=== PATIENT | male | born 1960 | race Caucasian/White ===

== ENCOUNTER 2019-10-10 08:56 | Day surgery (SDC) | payer SELFPAY ==
[~2019-10-10] VITALS: Ht 177.8 cm; Wt 81.4 kg
[~2019-10-10 08:56] MED LIST: GLUC500 PO; MULVITMIND PO; TESTOSTERONE PO
--- NOTE | 2019-10-10 09:20 | NUR ---
History, Chart, Medications and Allergies reviewed before start of procedure. Patient confirms NPO status and agrees with scheduled surgery. Lungs clear T/O to Auscultation. Pre-Op teaching done. Pt verbalizes understanding. Patient States Post-Procedure ride home has been arranged. Patient states colon prep results clear.
[2019-10-10] MEDS ORDERED: MSM-GLUCOSAMIN1 EACH PO (09:28)
[2019-10-10] MEDS ORDERED: GREEN TEA EXTR150 MG PO (09:29)
[2019-10-10] MEDS ORDERED: NIAC500ER PO (09:30)
[2019-10-10] MEDS ORDERED: Hair, Skin & N1 EACH PO (09:30)
[2019-10-10] MEDS ORDERED: ASCO500 PO (09:30)
[2019-10-10] MEDS ORDERED: Cholest Off450 MG PO (09:31)
--- NOTE | 2019-10-10 09:45 | NUR ---
10/10/19 0945 Tequila Ruiz History, Chart, Medications and Allergies reviewed before start of procedure. Patient confirms NPO status and agrees with scheduled surgery. PATIENT DETERMINED TO BE ASA APPROPRIATE FOR PROPOFOL SEDATION PRIOR TO START OF PROCEDURE BY DR. WHITLOCK. 3-LEAD EKG REVIEWED WITH PHYSICIAN PRIOR TO START OF PROCEDURE. MONITOR INTACT WITH CONTINUOUS PULSE OXIMETRY AND INTERMITTENT BP.
== END 2019-10-10 10:50 | disposition home or self-care (01) ==
LOC: ORSCMMR 08:56 → ORD 10:00 → ORSCMMR 10:50
PROVIDERS: Internal Medicine Gastroenterology
PROC: 0DBN8ZX Excision of Sigmoid Colon, Via Natural or Artificial Opening Endoscopic, Diagnostic (ICD-10-PCS; principal; 2019-10-10 10:00)
PROC: 0DBL8ZX Excision of Transverse Colon, Via Natural or Artificial Opening Endoscopic, Diagnostic (ICD-10-PCS; principal; 2019-10-10 10:00)
PROC: 0DBM8ZX Excision of Descending Colon, Via Natural or Artificial Opening Endoscopic, Diagnostic (ICD-10-PCS; principal; 2019-10-10 10:00)
DX: Z12.11 Encounter for screening for malignant neoplasm of colon (principal); Z86.010 Personal history of colon polyps; D12.5 Benign neoplasm of sigmoid colon; D12.4 Benign neoplasm of descending colon; D12.3 Benign neoplasm of transverse colon; B19.20 Unspecified viral hepatitis C without hepatic coma; K57.30 Diverticulosis of large intestine without perforation or abscess without bleeding
CPT/HCPCS: 88305; J2704; J7120

== ENCOUNTER 2022-07-17 15:09 | Inpatient (IN) | payer SELFPAY ==
[~2022-07-17] VITALS: Ht 165.1 cm; Wt 78.7 kg
[~2022-07-17 15:09] MED LIST changes: +ASCO500 PO; +Cholest Off450 MG PO; +GREEN TEA EXTR150 MG PO; +Hair, Skin & N1 EACH PO; +MSM-GLUCOSAMIN1 EACH PO; +NIAC500ER PO
[2022-07-17 15:58] LABS: BASOPHILS ABSOLUTE AUTO 0.04 K/mm3 (0.00-0.23); BASOPHILS PERCENT AUTO 0 % (0-2); EOSINOPHILS ABSOLUTE AUTO 0.14 K/mm3 (0.00-0.68); EOSINOPHILS PERCENT AUTO 1 % (0-6); Hematocrit 38.5 % (37.0-53.0); Hemoglobin 13.4 g/dL (13.5-17.5); IMMATURE GRAN ABSOLUTE AUTO 0.05 K/mm3 (0.00-0.10); IMMATURE GRAN PERCENT AUTO 0 % (0-1); LYMPHOCYTES ABSOLUTE AUTO 1.29 K/mm3 (0.84-5.20); LYMPHOCYTES PERCENT AUTO 10 % (21-46); MONOCYTES ABSOLUTE AUTO 1.23 K/mm3 (0.16-1.47); MONOCYTES PERCENT AUTO 9 % (4-13); Mean Corpuscular HGB 30.3 pg (26.0-34.0); Mean Corpuscular HGB Conc 34.8 g/dL (31.5-36.5); Mean Corpuscular Volume 87 fL (80-100); Mean Platelet Volume 9.2 fL (9.1-12.4); NEUTROPHILS ABSOLUTE AUTO 10.59 K/mm3 (1.96-9.15); NEUTROPHILS PERCENT AUTO 79 % (41-73); Platelet Count 413 K/mm3 (150-400); RDW Coefficient Variation 12.1 % (11.7-14.2); RDW Standard Deviation 39.2 fL (35.1-46.3); Red Blood Cell Count 4.42 M/mm3 (4.30-5.90); White Blood Cell Count 13.34 K/mm3 (4.00-11.30)
[2022-07-17 16:16] LABS: Albumin, Blood 2.9 g/dL (3.4-5.0); Albumin/Globulin Ratio 0.7 (0.8-1.8); Bilirubin, Total 0.4 mg/dL (0.1-1.0); Bun/Creatinine Ratio 22.4 (12.0-20.0); Creatinine, Blood 1.07 mg/dL (0.60-1.20); Globulin, Blood 4.1 g/dL (2.2-4.0); Potassium, Blood 4.1 mmol/L (3.5-5.5)
[2022-07-17 16:18] LABS: Source, Urine Clean Catch
[2022-07-17 16:35] LABS: Appearance, Urine Clear (Clear); Bilirubin, Urine Neg (Neg); Blood, Urine Neg (Neg); Color, Urine Yellow (P-Yellow); Glucose Qualitative, Urine Neg (Neg); Ketones, Urine 1+ (Neg); Leukocyte Esterase, Urine Neg (Neg); Nitrite, Urine Neg (Neg); Protein, Urine 1+ (Neg); Specific Gravity, Urine 1.015 (1.003-1.022); Urobilinogen, Urine NORM (Normal)
[2022-07-18 01:30] LABS: SARS-Cov-2 (COVID-19) PCR, MMC NEGATIVE (NEGATIVE)
--- NOTE | 2022-07-18 05:14 | NUR ---
SHIFT SUMMARY PT A&OX4, PLEASANT AND COOPERATIVE. MEDICATED FOR PAIN WITH TYLENOL ONCE. INDEPENDENT IN ROOM. NPO SINCE MIDNIGHT. SURGICAL CONSULT CALLED IN. CALLS APPROPRIATELY, CALL LIGHT WITHIN REACH.
[2022-07-18 05:22] LABS: BASOPHILS ABSOLUTE AUTO 0.05 K/mm3 (0.00-0.23); BASOPHILS PERCENT AUTO 0 % (0-2); EOSINOPHILS ABSOLUTE AUTO 0.21 K/mm3 (0.00-0.68); EOSINOPHILS PERCENT AUTO 2 % (0-6); Hematocrit 37.2 % (37.0-53.0); Hemoglobin 12.4 g/dL (13.5-17.5); IMMATURE GRAN ABSOLUTE AUTO 0.05 K/mm3 (0.00-0.10); IMMATURE GRAN PERCENT AUTO 0 % (0-1); LYMPHOCYTES ABSOLUTE AUTO 1.55 K/mm3 (0.84-5.20); LYMPHOCYTES PERCENT AUTO 14 % (21-46); MONOCYTES ABSOLUTE AUTO 1.11 K/mm3 (0.16-1.47); MONOCYTES PERCENT AUTO 10 % (4-13); Mean Corpuscular HGB 29.3 pg (26.0-34.0); Mean Corpuscular HGB Conc 33.3 g/dL (31.5-36.5); Mean Corpuscular Volume 88 fL (80-100); Mean Platelet Volume 9.7 fL (9.1-12.4); NEUTROPHILS ABSOLUTE AUTO 8.53 K/mm3 (1.96-9.15); NEUTROPHILS PERCENT AUTO 74 % (41-73); Platelet Count 396 K/mm3 (150-400); RDW Coefficient Variation 12.2 % (11.7-14.2); RDW Standard Deviation 39.3 fL (35.1-46.3); Red Blood Cell Count 4.23 M/mm3 (4.30-5.90)
[2022-07-18 06:00] LABS: Albumin, Blood 2.4 g/dL (3.4-5.0); Albumin/Globulin Ratio 0.6 (0.8-1.8); Bilirubin, Total 0.5 mg/dL (0.1-1.0); Bun/Creatinine Ratio 15.5 (12.0-20.0); Calcium, Blood 8.8 mg/dL (8.5-10.1); Creatinine, Blood 1.16 mg/dL (0.60-1.20); Potassium, Blood 4.3 mmol/L (3.5-5.5); Total Protein, Blood 6.4 g/dL (6.4-8.2)
--- NOTE | 2022-07-18 17:19 | NUR ---
SHIFT SUMMARY S/P ABD ABSCESS, A/O X4, VSS, TOLERATING CLEARS AFTER CLEARED TO EAT BY SURGERY, PLAN IS FOR DRAIN PLACEMENT WEDNESDAY IN WHICH PT IS AGREEABLE TO, MINIMAL PAIN THIS SHIFT, PT INDEPENDENT IN ROOM WITH IV FLUIDS RUNNING. PLAN TO BE NPO WEDNESDAY NIGHT AT MIDNIGHT FOR DRAIN PLACEMENT. IV ABX INFUSING ORDERED. NO ACUT EVENTS THIS SHIFT, CALL LIGHT IN REACH, WILL CTM AND REPORT TO ONCOMING NOC RN.
[2022-07-19 04:27] LABS: BASOPHILS ABSOLUTE AUTO 0.05 K/mm3 (0.00-0.23); BASOPHILS PERCENT AUTO 0 % (0-2); EOSINOPHILS ABSOLUTE AUTO 0.22 K/mm3 (0.00-0.68); EOSINOPHILS PERCENT AUTO 2 % (0-6); Hematocrit 35.4 % (37.0-53.0); Hemoglobin 12.3 g/dL (13.5-17.5); IMMATURE GRAN ABSOLUTE AUTO 0.07 K/mm3 (0.00-0.10); IMMATURE GRAN PERCENT AUTO 1 % (0-1); LYMPHOCYTES PERCENT AUTO 10 % (21-46); MONOCYTES ABSOLUTE AUTO 1.12 K/mm3 (0.16-1.47); MONOCYTES PERCENT AUTO 9 % (4-13); Mean Corpuscular HGB Conc 34.7 g/dL (31.5-36.5); Mean Corpuscular Volume 86 fL (80-100); NEUTROPHILS ABSOLUTE AUTO 10.15 K/mm3 (1.96-9.15); NEUTROPHILS PERCENT AUTO 79 % (41-73); Platelet Count 385 K/mm3 (150-400); RDW Coefficient Variation 12.1 % (11.7-14.2); RDW Standard Deviation 38.7 fL (35.1-46.3); White Blood Cell Count 12.91 K/mm3 (4.00-11.30)
[2022-07-19 04:42] LABS: International Normalized Ratio 1.15
--- NOTE | 2022-07-19 06:32 | NUR ---
SHIFT SUMMARY AOX4. HAD SLIGHT FEVER AT BEGINNING OF SHIFT 101.3, MEDICATED 1X c TYLENOL & TEMP DCREASED TO 99.1. REST OF VSS. TELE NSR HR 89. DENIES N/V OR DYSPNEA. STATES MILD 3/10 ABD/PELVIS DISCOMFORT c PALPATION. PLAN TO HAVE DRAIN PLACED ON WEDNESDAY. CALL LIGHT IN REACH & PT ABLE TO MAKE NEEDS KNOWN.
[2022-07-20 04:36] LABS: BASOPHILS ABSOLUTE AUTO 0.05 K/mm3 (0.00-0.23); BASOPHILS PERCENT AUTO 1 % (0-2); EOSINOPHILS ABSOLUTE AUTO 0.24 K/mm3 (0.00-0.68); EOSINOPHILS PERCENT AUTO 3 % (0-6); Hematocrit 35.3 % (37.0-53.0); Hemoglobin 12.1 g/dL (13.5-17.5); IMMATURE GRAN ABSOLUTE AUTO 0.04 K/mm3 (0.00-0.10); IMMATURE GRAN PERCENT AUTO 1 % (0-1); LYMPHOCYTES ABSOLUTE AUTO 1.72 K/mm3 (0.84-5.20); LYMPHOCYTES PERCENT AUTO 24 % (21-46); MONOCYTES ABSOLUTE AUTO 0.72 K/mm3 (0.16-1.47); MONOCYTES PERCENT AUTO 10 % (4-13); Mean Corpuscular HGB 29.9 pg (26.0-34.0); Mean Corpuscular HGB Conc 34.3 g/dL (31.5-36.5); Mean Corpuscular Volume 87 fL (80-100); Mean Platelet Volume 9.1 fL (9.1-12.4); NEUTROPHILS PERCENT AUTO 62 % (41-73); Platelet Count 393 K/mm3 (150-400); RDW Standard Deviation 38.8 fL (35.1-46.3); Red Blood Cell Count 4.05 M/mm3 (4.30-5.90); White Blood Cell Count 7.27 K/mm3 (4.00-11.30)
--- NOTE | 2022-07-20 07:49 | NUR ---
SHIFT SUMMARY AOX4. VSS. AFEBRILE. TELE NSR HR 80'S. HAS BEEN NPO SINCE MIDNIGHT FOR DRAIN PLACEMENT TODAY. CALL LIGHT IN REACH & PT ABLE TO MAKE NEEDS KNOWN.
--- NOTE | 2022-07-20 13:56 | NUR ---
PT OUT OF ROOM FOR DRAIN PLACEMENT.
--- NOTE | 2022-07-20 15:35 | NUR ---
Spiritual care visit attempted. Upon receiving a referrral for spiritual care, I visit pt. Pt tells me about his medical condition and the planned surgery to take place to address the issues. Pt voices his frustration about not hearing about when the surgery might be and then the doctor comes in while he is saying this. I let the pt and doctor talk as I step out of the rm. Spiritual care will make another attempt to offer services as requested.
--- NOTE | 2022-07-20 19:57 | NUR ---
SHIFT SUMMARY PT HAD A DRAIN PLACED TODAY BY RADIOLOGY. PT TOLERATING DRAIN WELL AND DENIES PAIN AT INSERTION SITE. PT HAS BEEN INDEPENDENT IN THE ROOM. HE IS TOLERATING A REGULAR LOW FIBER DIET. PT IS GETTING IV ABX. REPORT GIVEN TO ARMAND LOUIS.
--- NOTE | 2022-07-21 04:30 | NUR ---
SHIFT SUMMARY PATIENT AOX4, NO ACUTE EVENTS THIS SHIFT. URESIL DRAIN WITH MINIMAL SEROSANGUINEOUS OUTPUT IN TUBE. TOLERATES PO INTAKE, DENIES N/V. PATIENT REPORTS MINIMAL PAIN AND DENIES NEED FOR PAIN MEDICATION. PAITENT IS INDEPENDENT IN ROOM, VOIDS EASILY, REPORTS BM X3 THIS SHIFT. IV INFILTRATION NOTED TO XIOMRAA ARM, NEW IV START TO R FOREARM 20G. VSS, CALL IN REACH
[2022-07-21 04:55] LABS: BASOPHILS ABSOLUTE AUTO 0.06 K/mm3 (0.00-0.23); BASOPHILS PERCENT AUTO 1 % (0-2); EOSINOPHILS ABSOLUTE AUTO 0.28 K/mm3 (0.00-0.68); EOSINOPHILS PERCENT AUTO 4 % (0-6); Hemoglobin 13.4 g/dL (13.5-17.5); IMMATURE GRAN ABSOLUTE AUTO 0.04 K/mm3 (0.00-0.10); IMMATURE GRAN PERCENT AUTO 1 % (0-1); LYMPHOCYTES ABSOLUTE AUTO 1.86 K/mm3 (0.84-5.20); LYMPHOCYTES PERCENT AUTO 28 % (21-46); MONOCYTES ABSOLUTE AUTO 0.55 K/mm3 (0.16-1.47); MONOCYTES PERCENT AUTO 8 % (4-13); Mean Corpuscular HGB 29.5 pg (26.0-34.0); Mean Corpuscular HGB Conc 33.5 g/dL (31.5-36.5); Mean Corpuscular Volume 88 fL (80-100); Mean Platelet Volume 9.3 fL (9.1-12.4); NEUTROPHILS ABSOLUTE AUTO 3.89 K/mm3 (1.96-9.15); NEUTROPHILS PERCENT AUTO 58 % (41-73); Platelet Count 416 K/mm3 (150-400); RDW Standard Deviation 38.8 fL (35.1-46.3); Red Blood Cell Count 4.54 M/mm3 (4.30-5.90); White Blood Cell Count 6.68 K/mm3 (4.00-11.30)
[2022-07-21 05:18] LABS: Albumin, Blood 2.5 g/dL (3.4-5.0); Albumin/Globulin Ratio 0.6 (0.8-1.8); Bilirubin, Total 0.4 mg/dL (0.1-1.0); Bun/Creatinine Ratio 12.6 (12.0-20.0); Creatinine, Blood 1.11 mg/dL (0.60-1.20); Globulin, Blood 4.1 g/dL (2.2-4.0); Total Protein, Blood 6.6 g/dL (6.4-8.2)
--- NOTE | 2022-07-21 13:27 | NUR ---
Patient is sitting on EOB and alert. Pt tells me about the procedure performed the day and how the recovery will be going forward. He explains that he works at home and will be able to continue to work while recovering. He talks about his family unit complications, his strong [employer] rosemary and his ability to lean into his rosemary in challenging situations. I listen empathically, encourage self-care, reinforce helpful attitudes and practices and provide theological insights and prayer. Pt responds well and shows signs of an elevated mood. I will continue to remain available to pt and family.
--- NOTE | 2022-07-21 17:18 | NUR ---
SHIFT SUMMARY PT REMAINS IN THE HOSPITAL FOR IV ABX. NO FURTHER OUTPUT FROM URISIL DRAIN. PT DENIES PAIN. POSSIBLE DISCHARGE HOME TOMORROW. PT TOLERATING PO. WILL MONITOR UNTIL REPORT TO ARMAND LOUIS.
--- NOTE | 2022-07-22 04:58 | NUR ---
SUMMARY NO NEW ISSUES NOTED PT HAS BEEN SLEEPING WELL. PT DENIES ANY INCREASE IN DISCOMFORT. PT CURRENTLY SLEEPING IN NO DISTRESS. CALL LIGHT IN REACH.
[2022-07-22 06:26] LABS: BASOPHILS ABSOLUTE AUTO 0.06 K/mm3 (0.00-0.23); BASOPHILS PERCENT AUTO 1 % (0-2); EOSINOPHILS ABSOLUTE AUTO 0.26 K/mm3 (0.00-0.68); EOSINOPHILS PERCENT AUTO 4 % (0-6); Hematocrit 40.8 % (37.0-53.0); Hemoglobin 13.4 g/dL (13.5-17.5); IMMATURE GRAN ABSOLUTE AUTO 0.04 K/mm3 (0.00-0.10); IMMATURE GRAN PERCENT AUTO 1 % (0-1); LYMPHOCYTES ABSOLUTE AUTO 1.55 K/mm3 (0.84-5.20); LYMPHOCYTES PERCENT AUTO 22 % (21-46); MONOCYTES ABSOLUTE AUTO 0.62 K/mm3 (0.16-1.47); MONOCYTES PERCENT AUTO 9 % (4-13); Mean Corpuscular HGB 28.9 pg (26.0-34.0); Mean Corpuscular HGB Conc 32.8 g/dL (31.5-36.5); Mean Corpuscular Volume 88 fL (80-100); Mean Platelet Volume 9.5 fL (9.1-12.4); NEUTROPHILS ABSOLUTE AUTO 4.66 K/mm3 (1.96-9.15); NEUTROPHILS PERCENT AUTO 65 % (41-73); Platelet Count 447 K/mm3 (150-400); RDW Standard Deviation 38.7 fL (35.1-46.3); Red Blood Cell Count 4.63 M/mm3 (4.30-5.90); White Blood Cell Count 7.19 K/mm3 (4.00-11.30)
[2022-07-22 07:00] LABS: Albumin, Blood 2.6 g/dL (3.4-5.0); Albumin/Globulin Ratio 0.6 (0.8-1.8); Bilirubin, Total 0.5 mg/dL (0.1-1.0); Bun/Creatinine Ratio 15.7 (12.0-20.0); Creatinine, Blood 1.02 mg/dL (0.60-1.20); Globulin, Blood 4.2 g/dL (2.2-4.0); Total Protein, Blood 6.8 g/dL (6.4-8.2)
[2022-07-22] MEDS ORDERED: AMOCLA875 PO (15:49)
[2022-07-22] MEDS ORDERED: ACET325 PO (15:49)
--- NOTE | 2022-07-22 16:31 | NUR ---
DISCHARGE SUMMARY PATIENT ALERT AND ORIENTED THROUGHOUT SHIFT. INDEPENDENT IN ROOM. DENIES ABD PAIN. TOLERATING REGULAR DIET AND LIQUIDS. ROUTINE IV ABX. ABD DRAIN DC'D BY DR GAYTAN TODAY AND ORDERS FOR DISCHARGE WRITTEN. DISCHARGE EDUCATION GIVEN ON DRAIN SITE CARE, ACTIVITY, NEW MEDS, AND FOLLOW UP APPTS. IV DC'D WNL. PATIENT LEFT UNIT AT 1610 VIA WHEELCHAIR WITH SPOUSE FOR HOME.
== END 2022-07-22 16:14 | disposition home or self-care (01) | DRG 392 ==
LOC: ER 15:09 → SURS 20:26
PROVIDERS: Family Medicine; Internal Medicine; Physician Assistant; Surgery; ADMIT Internal Medicine
PROC: 0W9J30Z Drainage of Pelvic Cavity with Drainage Device, Percutaneous Approach (ICD-10-PCS; principal; 2022-07-20)
DX: K57.20 Diverticulitis of large intestine with perforation and abscess without bleeding (principal); N39.0 Urinary tract infection, site not specified; C61 Malignant neoplasm of prostate; E78.5 Hyperlipidemia, unspecified; Z79.899 Other long term (current) drug therapy; Z98.52 Vasectomy status; Z98.890 Other specified postprocedural states
CPT/HCPCS: 36415; 49406; 80053; 83605; 83690; 85025; 85610; 85730; 87040; 87070; 87075; 87076; 87077; 87185; 87186; 87205; 96365; 99284-25; A9270; J2543; J7030; J7050; J7120; U0004

== ENCOUNTER 2023-02-28 17:18 | Emergency (ER) | payer SELFPAY ==
[~2023-02-28] VITALS: Ht 182.9 cm; Wt 86.2 kg
[~2023-02-28 17:18] MED LIST changes: +ACET325 PO; +AMOCLA875 PO
[2023-02-28 17:24] VITALS: BP 145/91
[2023-02-28] MEDS ORDERED: AMOCLA875 PO (19:56)
[2023-02-28] MEDS ORDERED: Percocet 5-3251 EACH PO (19:57)
== END 2023-02-28 20:14 | disposition home or self-care (01) ==
LOC: ER 17:18
DX: S68.621A Partial traumatic transphalangeal amputation of left index finger, initial encounter (principal); W26.8XXA Contact with other sharp object(s), not elsewhere classified, initial encounter; Z23 Encounter for immunization; Z79.899 Other long term (current) drug therapy
CPT/HCPCS: 12001; 73140; 90471; 90714; 99283-25; A9270

== ENCOUNTER 2023-07-27 08:30 | Day surgery (SDC) | payer SELFPAY ==
[2023-07-27] VITALS (16 sets, daily range): BP systolic 103–140; BP diastolic 70–88
[~2023-07-27] VITALS: Ht 172.7 cm; Wt 78.5 kg
[~2023-07-27 08:30] MED LIST changes: +Percocet 5-3251 EACH PO
[2023-07-27] MEDS ORDERED: Saw Palmetto160 MG PO (08:53)
--- NOTE | 2023-07-27 09:33 | NUR ---
07/27/23 0932 Eder Chiu HISTORY, CHART, MEDICATIONS AND ALLERGIES REVIEWED BEFORE START OF PROCEDURE. PATIENT CONFIRMS NPO STATUS AND AGREES WITH SCHEDULED PROCEDURE. 3-LEAD EKG REVIEWED WITH PHYSICIAN PRIOR TO START OF PROCEDURE. MONITOR INTACT WITH CONTINUOUS PULSE OXIMETRY,CAPNOGRAPHY, 3-LEAD EKG, INTERMITTENT BP. SUPPLEMENTAL O2 TO BE TITRATED THROUGHOUT PROCEDURE TO MAINTAIN O2 SATURATION ABOVE 90%. PATIENT DETERMINED TO BE ASA APPROPRIATE FOR PROPOFOL SEDATION PRIOR TO START OF PROCEDURE BY
--- NOTE | 2023-07-27 10:22 | NUR ---
Discharge instructions reviewed with patient. Patient verbalizes understanding. Copy given to patient to take home. Patient States Post-Procedure ride home has been arranged. Discharged via wheelchair to private car for ride home.
== END 2023-07-27 10:20 | disposition home or self-care (01) ==
LOC: ORSCMMR 08:30
PROVIDERS: Internal Medicine Gastroenterology
PROC: 0DBL8ZX Excision of Transverse Colon, Via Natural or Artificial Opening Endoscopic, Diagnostic (ICD-10-PCS; principal; 2023-07-27 09:00)
PROC: 0DBP8ZX Excision of Rectum, Via Natural or Artificial Opening Endoscopic, Diagnostic (ICD-10-PCS; principal; 2023-07-27 09:00)
PROC: 0DBN8ZX Excision of Sigmoid Colon, Via Natural or Artificial Opening Endoscopic, Diagnostic (ICD-10-PCS; principal; 2023-07-27 09:00)
DX: Z12.11 Encounter for screening for malignant neoplasm of colon (principal); Z86.010 Personal history of colon polyps; D12.3 Benign neoplasm of transverse colon; D12.5 Benign neoplasm of sigmoid colon; D12.8 Benign neoplasm of rectum; Z85.46 Personal history of malignant neoplasm of prostate
CPT/HCPCS: 88305; J2704; J7120